=== PATIENT | female | born 1970 | race American Indian/Alaskan Native ===

== ENCOUNTER 2018-10-06 22:20 | Emergency (ER) | payer SELFPAY ==
[2018-10-06] MEDS ORDERED: ASPIRIN PO ONE (23:09)
[2018-10-06 23:27] LABS: Basophils % (Auto) 0.7 % (0.0-1.8); Eosinophils # (Auto) 0.1 K/mm3 (0.0-0.4); Hematocrit 38.3 % (30.3-42.9); Hemoglobin 13.2 gm/dl (10.1-14.3); Lymphocytes # (Auto) 2.5 K/mm3 (1.2-5.4); Lymphocytes % (Auto) 42.1 % (13.4-35.0); Mean Corpuscular HGB Conc 34 % (30-34); Mean Corpuscular Volume 81 fl (79-97); Monocytes # (Auto) 0.5 K/mm3 (0.0-0.8); Monocytes % (Auto) 8.1 % (0.0-7.3); Platelet Count 286 K/mm3 (140-440); Red Blood Count 4.76 M/mm3 (3.65-5.03); Red Cell Distribution Width 14.1 % (13.2-15.2)
[2018-10-06 23:40] LABS: BUN/Creatinine Ratio 20; Blood Urea Nitrogen 16 mg/dL (7-17); Hemolysis Index 12
[2018-10-07] MEDS ORDERED: MORPHINE IV ONE (00:06)
[2018-10-07] MEDS ORDERED: ZOFRAN IV ONE (00:06)
[2018-10-07] MEDS ORDERED: TORADOL IV ONE (00:06)
[2018-10-07] MEDS ORDERED: PEPCID IV ONE (00:06)
[2018-10-07] MEDS ORDERED: ALUM-MAG HYDROX-SIMETH 200-200-20MG/5ML PO ONE (00:08)
--- NOTE | 2018-10-07 00:35 | XRay Report ---
FINAL REPORT EXAM: XR CHEST 1V AP HISTORY: chest discomfort COMPARISON: None available. FINDINGS: Frontal view(s) of the chest obtained. Heart upper limits normal in size.. No gross consolidation or effusion. No pneumothorax. IMPRESSION: No grossly acute findings.
[2018-10-07 01:36] VITALS: BP 113/59
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
== END 2018-10-07 02:05 | disposition home or self-care (01) ==
LOC: ED 22:20
DX: R07.89 Other chest pain (principal); K21.9 Gastro-esophageal reflux disease without esophagitis; I10 Essential (primary) hypertension; Z88.0 Allergy status to penicillin; Z88.1 Allergy status to other antibiotic agents
CPT/HCPCS: 36415; 71045; 80048; 84484; 84703; 85025; 93005; 93010; 96374; 96375; 99284; J1885; J2270; J2405